=== PATIENT | male | born 1985 | race Caucasian/White ===

== ENCOUNTER 2018-01-25 11:18 | Emergency (ER) | payer OTHER ==
[2018-01-25] MEDS ORDERED: Aspirin 81 MG Tab.Chew ONE (11:28)
[2018-01-25] MEDS ORDERED: Aspirin 81 MG Tab.Chew PO ONE (11:39)
--- NOTE | 2018-01-25 11:58 | EDM.PDOC ---
ED HPI GENERAL MEDICAL PROBLEM - General Chief Complaint: Chest Pain Stated Complaint: CHEST PAIN Time Seen by Provider: 01/25/18 11:53 Source of Information: Reports: Patient History Limitations: Reports: No Limitations - History of Present Illness INITIAL COMMENTS - FREE TEXT/NARRATIVE: Patient is a 32-year-old gentleman who presents to the emergency department this afternoon with a complaint of chest pain. Patient states that the pain is described as muscle cramping of left lower chest, upper abdomen. Lasts several hours and resolves spontaneously. Patient states that the symptoms have been going on for a couple of years, happens every few weeks, and resolves spontaneously. Patient has been evaluated previously in [place] for same symptoms, and found to have no cardiopulmonary issues, per patient. Patient has no other medical history other than occasional indigestion. He takes Tums for relief. Patient denies shortness of breath, fever, lower extremity edema, recent out of country travel, any trauma, or recent muscle overexertion. Onset: Gradual Duration: Chronic Location: Reports: Chest Quality: Reports: Other (Muscle cramp) Improves with: Reports: Other (Spontaneous) Worsens with: Reports: None Context: Reports: Other (While at rest) Associated Symptoms: Reports: No Other Symptoms. Denies: Cough, cough w sputum , Diaphoresis, Fever/Chills, Nausea/Vomiting, Shortness of Breath Treatments [employer]: Reports: Aspirin - Related Data Allergies Allergy/AdvReac Type Severity Reaction Status Date / Time No Known Drug Allergies Allergy Cannot Verified 01/25/18 11:43 Remember Home Meds: Home Meds . [No Known Home Meds] 01/25/18 [History] ED ROS GENERAL - Review of Systems Review Of Systems: ROS reveals no pertinent complaints other than HPI. Constitutional: Reports: No Symptoms HEENT: Reports: No Symptoms Respiratory: Reports: No Symptoms. Denies: Shortness of Breath Cardiovascular: Reports: Chest Pain Endocrine: Reports: No Symptoms GI/Abdominal: Reports: No Symptoms : Reports: No Symptoms Musculoskeletal: Reports: No Symptoms Skin: Reports: No Symptoms Neurological: Reports: No Symptoms Psychiatric: Reports: No Symptoms Hematologic/Lymphatic: Reports: No Symptoms Immunologic: Reports: No Symptoms ED EXAM, GENERAL - Physical Exam Exam: See Below Exam Limited By: No Limitations General Appearance: Alert, WD/WN, No Apparent Distress Nose: Normal Inspection, Normal Mucosa, No Blood Throat/Mouth: Normal Inspection, Normal Oropharynx, No Airway Compromise Head: Atraumatic, Normocephalic Neck: Normal Inspection, Supple, Non-Tender, Full Range of Motion Respiratory/Chest: No Respiratory Distress, Lungs Clear, Normal Breath Sounds, No Accessory Muscle Use, Chest Non-Tender, Other (No chest discomfort at this time) Cardiovascular: Normal Peripheral Pulses, Regular Rate, Rhythm, No Murmur, No Rub GI/Abdominal: Normal Bowel Sounds, Soft, Non-Tender, No Organomegaly, No Distention, No Abnormal Bruit, No Mass, Other ( No epigastric or left upper abdominal pain at this time) Back Exam: Normal Inspection. No: CVA Tenderness (L), CVA Tenderness (R) Extremities: Normal Inspection, No Pedal Edema Neurological: Alert, Oriented, Normal Cognition Psychiatric: Normal Affect, Normal Mood Skin Exam: Warm, Dry, Intact, Normal Color, No Rash EKG INTERPRETATION EKG Date: 01/25/18 Time: 11:30 Rhythm: NSR Rate (Beats/Min): 76 [place]: Normal P-Wave: Present QRS: Normal ST-T: Normal QT: Normal Comparison: NA - No Prior EKG Course - Vital Signs Last Recorded V/S: Last Vital Signs Temp 97.1 F 01/25/18 11:20 Pulse 66 01/25/18 11:45 Resp 20 01/25/18 11:45 BP 129/77 01/25/18 11:45 Pulse Ox 95 01/25/18 11:45 - Orders/Labs/Meds Orders: Active Orders 24 hr Category Date Time Status EKG Documentation Completion [RC] ASDIRECTED Care 01/25/18 11:39 Active Chest 1V Frontal [CR] Stat Exams 01/25/18 11:38 Ordered EKG 12 Lead [EK] Routine Ther 01/25/18 11:39 Ordered Labs: Laboratory Tests 01/25/18 01/25/18 Range/Units 11:35 11:35 WBC 3.9 L (5.0-10.0) 10^3/uL RBC 4.81 (4.50-6.00) 10^6/uL Hgb 15.1 (13.0-17.0) g/dL Hct 42.9 (40.0-52.0) % MCV 89.4 (82.0-92.0) fL MCH 31.5 H (27.0-31.0) pg MCHC 35.3 (32.0-36.0) g/dL RDW 11.7 (11.5-14.5) % Plt Count 168 (150-300) 10^3/uL MPV 8.7 (7.4-10.4) fL Neut % (Auto) 48.8 L (50.0-70.0) % Lymph % (Auto) 39.9 (20.0-40.0) % [place] % (Auto) 7.9 (2.0-8.0) % Eos % (Auto) 2.7 (1.0-3.0) % Baso % (Auto) 0.7 (0.0-1.0) % Neut # (Auto) 1.9 L (2.5-7.0) 10^3/uL Lymph # (Auto) 1.6 (1.0-4.0) 10^3/uL [place] # (Auto) 0.3 (0.1-0.8) 10^3/uL Eos # (Auto) 0.1 (0.1-0.3) 10^3/uL Baso # (Auto) 0.0 (0.0-0.1) 10^3/uL Sodium 140 (136-145) mmol/L Potassium 3.8 (3.3-5.3) mmol/L Chloride 104 (98-115) mmol/L Carbon Dioxide 26.5 (21.0-32.0) mmol/L Anion Gap 13.3 (5-15) mmol/L BUN 11 (6-25) mg/dL Creatinine 0.77 (0.51-1.17) mg/dL Est Cr Clr Drug Dosing 142.21 mL/min Estimated GFR (MDRD) > 60 mL/min Glucose 125 mg/dL Calcium 8.9 (8.7-10.3) mg/dL Total Bilirubin 0.5 (0.2-1.0) mg/dL AST 33 (15-37) U/L ALT 93 H (12-78) U/L Alkaline Phosphatase 57 (46-116) IU/L Troponin I < 0.04 (0.00-0.070) ng/mL Total Protein 7.0 (6.4-8.2) g/dL Albumin 3.86 (3.00-4.80) g/dL Lipase 145 (73-393) U/L Meds: Medications Discontinued Medications Generic Name Dose Route Start Last Admin Trade Name Keny PRN Reason Stop Dose Admin Aspirin 162 mg 01/25/18 11:39 Aspirin PO 01/25/18 11:40 ONETIME ONE - Radiology Interpretation Free Text/Narrative:: Chest x-ray shows no acute cardiopulmonary process - Re-Assessments/Exams Free Text/Narrative Re-Assessment/Exam: 01/25/18 12:26 Patient afebrile, nontoxic appearing, vital signs stable. Lab work, EKG, chest x-ray, and troponin normal. Patient has had no discomfort while in the emergency department. Patient does not have a primary care physician so he will follow-up with Dr. De Los Santos. Departure - Departure Time of Disposition: 12:27 Disposition: Home, Self-Care 01 Condition: Good Clinical Impression: Atypical chest pain Instructions: Nonspecific Chest Pain, [id number] Referrals: Yareli Knott MD [Physician] - Forms: ED Department Discharge Additional Instructions: Follow-up with Dr. De Los Santos next 3-5 days. Return to emergency department sooner if symptoms continue or worsen. - My Orders Last 24 Hours: My Active Orders 01/25/18 11:38 Chest 1V Frontal [CR] Stat 01/25/18 11:39 EKG Documentation Completion [RC] ASDIRECTED EKG 12 Lead [EK] Routine - Assessment/Plan Last 24 Hours: My Active Orders 01/25/18 11:38 Chest 1V Frontal [CR] Stat 01/25/18 11:39 EKG Documentation Completion [RC] ASDIRECTED EKG 12 Lead [EK] Routine Assessment:: Atypical chest pain Plan: Follow-up with Dr. De Los Santos
[2018-01-25 12:13] LABS: ANION GAP 13.3 mmol/L (5-15); CHLORIDE,CL 104 mmol/L (98-115); SODIUM,NA 140 mmol/L (136-145)
== END 2018-01-25 12:40 | disposition home or self-care (01) ==
LOC: KA.ED 11:18
DX: R07.89 Other chest pain (principal)
CPT/HCPCS: 71045; 80053; 83690; 84484; 85025; 93005; 99285; A9270